=== PATIENT | female | born 1955 | race Caucasian/White ===

== ENCOUNTER 2018-09-11 18:43 | Emergency (ER) | payer MEDICARE, MEDICAID ==
[~2018-09-11] VITALS: Ht 147.3 cm; Wt 82.5 kg
[~2018-09-11 18:43] MED LIST: ASPI-496 PO; CEFD300C37 PO; DOXY100C2 PO; ERGO500017 PO; HYDR-3653 PO; INSU100V13 SC; MELO7.5T31 PO; MIRT15TA4 PO; QUET100T4 PO
--- NOTE | 2018-09-11 19:02 | NUR ---
REPORT FROM DEMETRA MARTIN. ASSUMED CARE OF PATIENT AT THIS TIME.
--- NOTE | 2018-09-11 19:18 | NUR ---
PATIENT BIB [facility] FOR ABD PAIN AND INTERMITTENT DIARRHEA X 1 MONTH, AWAITING MD ORDERS, CALL LIGHT WITHIN REACH. PATIENT PLACED ON ISO AT THIS TIME, YUNG.
[2018-09-11] MEDS ORDERED: MAALOX/HYOSCYAMINE/LIDOCAINE 45 ML BTL PO ONE (19:30)
[2018-09-11] MEDS ORDERED: metroNIDAZOLE 500 MG TABLET PO ONE (19:30)
[2018-09-11] MEDS ORDERED: MAALOX/HYOSCYAMINE/LIDOCAINE 45 ML BTL ONE (19:46)
[2018-09-11] MEDS ORDERED: metroNIDAZOLE 500 MG TABLET ONE (19:46)
[2018-09-11 20:06] LABS: BASOPHILS # (AUTO) 0.06 x10^3/uL (0-0.1); BASOPHILS % (AUTO) 1 % (0-1); EOSINOPHILS % (AUTO) 2 % (1-7); LYMPHOCYTES # (AUTO) 2.97 x10^3/uL (1-3.4); LYMPHOCYTES % (AUTO) 34 % (22-44); MD NO; MEAN CORPUSCULAR HEMOGLOBIN 30.8 pg (27.0-34.8); MEAN CORPUSCULAR VOLUME 93.2 fL (80-100); MEAN PLATELET VOLUME 9.6 fL (7.4-10.4); MONOCYTES # (AUTO) 0.49 x10^3/uL (0.2-0.8); MONOCYTES % (AUTO) 6 % (2-9); NEUTROPHILS # (AUTO) 4.93 x10^3/uL (1.8-6.8); NEUTROPHILS % (AUTO) 57 % (42-75); PLATELET COUNT 159 x10^3/uL (130-400); RED BLOOD COUNT 5.12 x10^6/uL (3.82-5.3); RED CELL DISTRIBUTION WIDTH 13.2 % (9.6-15.2)
[2018-09-11 20:15] LABS: CHLORIDE 111 mmol/L (98-107)
[2018-09-11 20:18] LABS: ALBUMIN 3.7 g/dL (3.4-5.0); ANION GAP 4 mmol/L (5-15); CREATININE 0.86 mg/dL (0.55-1.02)
--- NOTE | 2018-09-11 20:20 | NUR ---
PATIENT AMB WITH STEADY GAIT TO BATHROOM, PATIENT BACK TO BED. O2 DROPPING TO 87% RA, SUPPLEMENTAL O2 APPLIED, NOW 93% ON 2L NC. VS UPDATED IN YUNG [facility]. Addendum: 09/11/18 at 2027 by MARILIA PATIENT REPORTS BEING ON INTERMITTENT HOME O2.
--- NOTE | 2018-09-11 20:29 | NUR ---
RESULTS BACK, CHART UP FOR RECHECK.
[2018-09-11 20:42] VITALS: BP 124/55
--- NOTE | 2018-09-11 20:43 | NUR ---
Piyush hernandez in EDM - 09/11/18 at 2044 by ERNIE Patient/Caregiver given discharge instructions and they have confirmed that they understand the instructions. Patient ambulatory with steady gait with walker. Patient to wear home O2 at night, 90% ra at DC.
== END 2018-09-11 20:46 | disposition home or self-care (01) ==
LOC: ED 20:30
DX: R19.7 Diarrhea, unspecified (principal); F31.9 Bipolar disorder, unspecified; E11.9 Type 2 diabetes mellitus without complications; J44.9 Chronic obstructive pulmonary disease, unspecified; F17.200 Nicotine dependence, unspecified, uncomplicated; Z90.89 Acquired absence of other organs
CPT/HCPCS: 36415; 80048; 82040; 85025; 99283